=== PATIENT | male | born 1980 | race Caucasian/White ===

== ENCOUNTER → 2021-03-19 | Outpatient (CLI) | payer BC, OTHER ==
--- NOTE | 2021-03-19 13:51 | KCIC ---
Examination: MRI right ankle without contrast HISTORY: History of right ankle pain, swelling of the ankle, instability COMPARISON: None available TECHNIQUE: Multiplanar, multisequence MR imaging of the right ankle was performed without contrast. FINDINGS: The attachment of the Achilles tendon and plantar fascia attachment of the calcaneus grossly appears intact. The extensor compartment tendons, peroneal tendons, flexor tendons grossly appears intact. Small amou nt of fluid identified in the tendon sheath of the posterior tibialis tendon and the flexor hallucis longus tendon likely tenosynovitis. The alignment of the tarsal bones, tarsometatarsal joints grossly appears intact. The deltoid ligament appears intact. There is full-thickness tear of the anterior tibiofibular ligame nt. Moderate increased T2 signal/edema identified about the torn anterior tibiofibular ligament. The posterior tibiofibular, talofibular ligaments appear intact. The anterior talofibular ligament appear s intact. Ankle joint effusion is identified laterally. Mild increased T2 signal/ trabecular edema identified in the posterior portion of the tibial plafond. 5 mm small subchondral cystic change identified in the lateral tibial plafond could be degenerative changes or small osteochondral defect. IMPRESSION: 1. Full-thickness tear of the anterior tibiofibular ligament. 2. Mild increased T2 signal/edema identified in the posterior portion of the tibial plafond could be degenerative changes or small osteochondral defect. 3. Ankle joint effusion identified laterally. 4. Small amount of fluid identified in the tendon sheath of the posterior tibialis tendon and the fl exor hallucis longus tendon likely tenosynovitis. Electronically signed by: Rafael Beltran MD (03/19/2021 1:49 PM) [id number]
== END ==
LOC: KCIC MRI 12:32
PROVIDERS: ATTEND Family Medicine
DX: S93.431A Sprain of tibiofibular ligament of right ankle, initial encounter (principal); M25.471 Effusion, right ankle; X58.XXXA Exposure to other specified factors, initial encounter; Y93.89 Activity, other specified; Y92.89 Other specified places as the place of occurrence of the external cause; Y99.8 Other external cause status
CPT/HCPCS: 73721